=== PATIENT | male | born 1965 | race Caucasian/White ===

== ENCOUNTER 2021-11-14 20:00 | Outpatient (CLI) | payer OTHER, SELFPAY | END 2021-11-14 20:01 | disposition home or self-care (01) | LOC: SLEEP 11-15 05:47 | PROVIDERS: Visit Provider Nurse Practitioner | DX: R06.83 Snoring (principal); G47.33 Obstructive sleep apnea (adult) (pediatric) | CPT/HCPCS: 95810 ==

== ENCOUNTER → 2022-01-02 10:49 | Outpatient (BNVA) | payer OTHER, SELFPAY | PROVIDERS: Referring Provider Nurse Practitioner; Visit Provider Specialist | DX: S83.206A Unspecified tear of unspecified meniscus, current injury, right knee, initial encounter (principal); X58.XXXA Exposure to other specified factors, initial encounter; M17.11 Unilateral primary osteoarthritis, right knee | CPT/HCPCS: 73560; 73565; 99204 ==

== ENCOUNTER 2022-03-15 20:00 | Outpatient (CLI) | payer OTHER, SELFPAY | END 2022-03-15 20:01 | disposition home or self-care (01) | LOC: SLEEP 03-16 06:13 | PROVIDERS: Visit Provider Nurse Practitioner | DX: G47.33 Obstructive sleep apnea (adult) (pediatric) (principal) | CPT/HCPCS: 95811 ==

== ENCOUNTER 2022-07-11 12:36 | Emergency (ER) | payer OTHER, SELFPAY ==
[2022-07-11] VITALS (18 sets, daily range): BP systolic 82–136; BP diastolic 53–87; PULSE 67–123; RESP 18; TEMP 36.8; O2SAT 92–99
--- NOTE | 2022-07-11 12:54 | W.ED.MALEGU ---
HPI - Male Genitourinary General: Chief complaint: Urogenital-Male Stated complaint: urinary pain Time Seen by Provider: 07/11/22 12:54 History of Present Illness: Mr. Ladd is a 56-year-old gentleman with reported history of nephrolithiasis presenting to the emergency department for concern of recurrent nephrolithiasis. He reports 4 to 5 weeks of pain initially primarily on the flank however slowly descending and now recently has been in his penis. He notes hematuria associated with this and sharp stabbing pain worse with urination however constantly there. Denies associated infectious symptoms. Intensity symptoms is moderate to severe. Course has persisted. Denies testicular pain or swelling. No other specific changes in health, exacerbating, or alleviating factors identified. Onset (ago): week(s) Duration: progressively worsening Location: penis Severity: severe Quality: sharp and stabbing Relieving factors: none Exacerbating factors: urination Associated symptoms: Reports hematuria Review of Systems General: Reports: 10 or more systems reviewed and unremarkable except in HPI and below : Reports: hematuria PFSH ED PFSH: Medical History History of nephrolithiasis Surgical History History of appendectomy Social History Smoking and tobacco status: never smoked Second hand smoke exposure: No Smoking risk assessment/counseling performed?: No Alcohol intake: never Desire information about alcohol rehabilitation?: No Counseling given: No Substance/Drug Use: never Desire information about substance/drug rehabilitation?: No Counseling given: No Adopted: No Caregiver/support person: No Lives independently: No Household members: spouse Housing: House Marital status: Highest education level completed: High School Graduate service: Yes Current occupational status: employed Current occupational exposures/hazards: No Pets and animals: Yes Sexually active: Yes Do you think of yourself as: Straight/Heterosexual Current gender identity: Male Special alcon needs: No Physical Exam Const: COMMON NORMALS: alert GENERAL APPEARANCE: cooperative and well developed HENMT: COMMON NORMALS: normocephalic and atraumatic HEAD & SCALP: normocephalic and atraumatic THROAT: posterior oropharynx normal Eye: COMMON NORMALS: conjunctivae normal CONJUNCTIVA: Yes conjunctivae normal SCLERA: sclerae normal Neck/C-Spine: COMMON NORMALS: supple GENERAL: Yes trachea midline Resp: COMMON NORMALS: normal respiratory effort EFFORT & INSPECTION: Yes able to speak in complete sentences Cardio: COMMON NORMALS: regular rate and regular rhythm RATE: regular rate RHYTHM: regular rhythm GI: COMMON NORMALS: Soft to palpation PALPATION: Yes Soft to palpation and No Tenderness to palpation present (GI) : COMMON NORMALS: Yes normal external exam, Yes Testes normal and Yes scrotum normal Extremity: GENERAL: Yes normal exam except as noted and No edema Neuro: COMMON NORMALS: moves all extremities SENSORIUM/ORIENTATION: Yes alert and No Orientation impaired Psych: COMMON NORMALS: mental status grossly normal and Normal thought process present THOUGHT PROCESS: Normal thought process present Course Vital Signs: Vital signs: Vital Signs Temperature 98.3 F 07/11/22 12:38 Pulse Rate 67 07/11/22 17:17 Respiratory Rate 18 07/11/22 17:17 Blood Pressure 129/79 07/11/22 17:17 Pulse Oximetry 94 07/11/22 17:17 Oxygen Delivery Me thod Room Air 07/11/22 12:38 MDM - Male Medical Decision Making 56-year-old gentleman with history of nephrolithiasis presenting with similar symptoms and urinary symptoms. Exam as above. Patient is nontoxic. Labs notable for no significant hematologic abnormality, metabolic panel with mild dehydration, patient can adequately orally rehydrate. Urinalysis concerning for urinary tract infection. CT imaging demonstrates bladder stone which likely explains patient's symptoms. Incidental findings including bladder wall thickening and prostate enlargement discussed with patient. Discussed with urology, patient appropriate for outpatient management. Patient has symptom improvement with analgesia, antiemetic, IV fluids. Likely etiology of patient's symptoms is urinary tract infection and bladder calculus. The results of ED evaluation were discussed with the patient including prescriptions and/or symptomatic cares (if applicable) including appropriate and responsible use, followup plan, and return precautions. The patient verbalized understanding and felt safe for discharge. Medical Records I reviewed the patient's medical records. Lab Data I reviewed the patient's lab results. 07/11/22 13:36 07/11/22 13:36 Radiology Impressions Abdomen/Pelvis CT 07/11/22 13:22 IMPRESSION: 1. No hydronephrosis in either kidney. No obstructing ureteral calculi. 2. Diffuse bladder wall thickening with decompression of the bladder. Dependent calculus in the bladder measuring 10 mm. 3. Diffuse soft tissue bladder wall thickening dome of the bladder indeterminate. This can be further evaluated with cystoscopy. Neoplasm not excluded. 4. Mild prostate prominence measuring 4.1 CM. Laboratory Results WBC 9.6 10^3/uL (4.0-10.0) 07/11/22 13:36 RBC 5.55 10^6/uL (4.1-5.3) H 07/11/22 13:36 Hgb 16.6 g/dL (11.7-16.6) 07/11/22 13:36 Hct 49.7 % (42.0-52.0) 07/11/22 13:36 MCV 89.5 fl (80-94) 07/11/22 13:36 MCH 29.9 pg (28.0-34.0) 07/11/22 13:36 MCHC 33.4 g/dL (30.0-36.0) 07/11/22 13:36 RDW 13.8 % (12.1-15.1) 07/11/22 13:36 Plt Count 302 10^3/cmm (130-400) 07/11/22 13:36 MPV 10.7 fL (7.4-10.4) H 07/11/22 13:36 Neut % (Auto) 77.7 % 07/11/22 13:36 Lymph % (Auto) 14.7 % 07/11/22 13:36 [place] % (Auto) 5.9 % 07/11/22 13:36 Eos % (Auto) 0.8 % 07/11/22 13:36 Baso % (Auto) 0.5 % 07/11/22 13:36 Neut # (Auto) 7.43 10^3/uL (1.8-7.7) 07/11/22 13:36 Lymph # (Auto) 1.4 10^3/uL (0.8-4.8) 07/11/22 13:36 [place] # (Auto) 0.6 10^3/uL (0.2-0.9) 07/11/22 13:36 Eos # (Auto) 0.1 10^3/uL (0.0-0.8) 07/11/22 13:36 Baso # (Auto) 0.1 10^3/uL (0.0-0.1) 07/11/22 13:36 Nucleated RBC % (auto) 0 % 07/11/22 13:36 Nucleated RBCs # 0.0 /100WBC 07/11/22 13:36 Sodium 135 mmol/L (136-145) L 07/11/22 13:36 Potassium 4.1 mmol/L (3.5-5.1) 07/11/22 13:36 Chloride 101 mmol/L (98-107) 07/11/22 13:36 Carbon Dioxide 21 mmol/L (22-29) L 07/11/22 13:36 Anion Gap 17.1 (5-19) 07/11/22 13:36 BUN 22 mg/dL (6-20) H 07/11/22 13:36 Creatinine 0.9 mg/dL (0.7-1.2) 07/11/22 13:36 GFR Calculation 86.7 mL/min (90-130) L 07/11/22 13:36 Glucose 103 mg/dL (65-115) 07/11/22 13:36 Calculated Osmolality 284 mOsm/kg (285-295) L 07/11/22 13:36 Lactic Acid 1.1 mmol/L (0.5-2.2) 07/11/22 13:36 Calcium 9.2 mg/dL (8.5-10.5) 07/11/22 13:36 Total Bilirubin 0.6 mg/dL (0.15-1.2) 07/11/22 13:36 AST 15 U/L (0-40) 07/11/22 13:36 ALT 16 U/L (0-41) 07/11/22 13:36 Alkaline Phosphatase 139 U/L (40-130) H 07/11/22 13:36 Total Protein 7.6 g/dL (6.6-8.7) 07/11/22 13:36 Albumin 4.4 g/dL (3.5-5.2) 07/11/22 13:36 Globulin 3.2 g/dL (1.3-4.6) 07/11/22 13:36 Urine Color Yellow (Yellow) 07/11/22 13:30 Urine Appearance Sl hazy (CLEAR) A 07/11/22 13:30 Urine pH 5 (5-7) 07/11/22 13:30 Ur Specific Reading 1.025 (1.005-1.030) 07/11/22 13:30 Urine Protein 2+ (Negative) H 07/11/22 13:30 Urine Glucose (UA) Norm (Normal) 07/11/22 13:30 Urine Ketones 1+ (Negative) H 07/11/22 13:30 Urine Blood 3+ (Negative) H 07/11/22 13:30 Urine Nitrate Negative (Negative) 07/11/22 13:30 Urine Bilirubin 1+ (Negative) H 07/11/22 13:30 Urine Urobilinogen Neg mg/dL (Negative) 07/11/22 13:30 Ur Leukocyte Esterase 1+ (Negative) H 07/11/22 13:30 Urine RBC 50-80 /hpf (0-2) H 07/11/22 13:30 Urine WBC 55-80 /hpf (0-5) H 07/11/22 13:30 Ur Squamous Epith Cells 5-10 /hpf (0-5) H 07/11/22 13:30 Calcium Oxalate Crystal 5-10 /hpf H 07/11/22 13:30 Amorphous Sediment Not Reportable 07/11/22 13:30 Urine Bacteria 1+ /hpf (NONE) H 07/11/22 13:30 Urine Mucus 2+ /hpf 07/11/22 13:30 Discharge Plan Discharge Patient Disposition: Home Clinical Impression: Acute UTI, Bladder calculus, Dehydration Condition: Stable Prescriptions: New ciprofloxacin HCl 500 mg tablet 500 mg PO BID Qty: 20 0RF No Action tamsulosin [Flomax] 0.4 mg capsule 0.4 mg PO DAILY Discharge Orders: Discharge ED (Routine); Ordered 07/11/22 Ordered By: Ned Cardenas Referrals: Brionna Morelos FNP [Primary Care Provider] - Discharge Diet: Usual diet Discharge Activity: Increase activity as tolerated Patient Instructions: Dehydration (ED), Urinary Tract Infection in Men (ED), Bladder Stones (ED), Opioid Safety Activity Restrictions/Additional Instructions: Thank you for visiting the emergency department. You were seen and evaluated for penile pain associated with bleeding with concern for kidney stone. You do have a calculus that is not in your bladder not causing obstruction. You also have a urinary tract infection which will be treated as discussed. I will message case management for follow-up. You may call Dr. Brown's office at [phone]. His office is in the medical office building. Please continue your Azo. You may use acetaminophen. Do not use other NSAIDs or similar medications while taking the Toradol. Please ensure that you are staying hydrated. Return to the emergency department for anything as discussed or anything else that you are concerned about and feel needs emergency department evaluation. Coding Level of Care Code ED [employer] Consultant for Jayna Terry
[2022-07-11] MEDS: morphine 4 mg/mL SDV 1 mL IVP (13:19)
--- NOTE | 2022-07-11 13:22 | CT_ITS ---
WS: [id number] CT ABDOMEN PELVIS TECHNIQUE: Noncontrast CT of the abdomen and pelvis with coronal and sagittal reformatted images. CLINICAL INFORMATION: hematuria, penile pain, hx kidney stones COMPARISON: None. DLP: 1102.[address] scans at [facility] use at least one of these dose optimization techniques: automated e xposure control; mA and/or kV adjustment per patient size (includes targeted exams where dose is matc hed to clinical indication); or iterative reconstruction. FINDINGS: No hydronephrosis in either kidney. No obstructing renal or ureteral calculi. A few tiny calyceal tip calculi bilaterally nonobstructing. A few small renal cysts. Bladder is decompressed with mild diffu se bladder wall thickening. Depending calculus in the bladder measuring 10 mm. Mild diffuse bladder w all thickening at the dome of the bladder is indeterminant. This can be further evaluated with cystos copy. Neoplasm not excluded Lung bases are well aerated. Noncontrast liver and spleen are normal. Small esophageal hiatal hernia. Noncontrast pancreas is normal. Gallbladder appears normal. Adrenal glands are normal. Normal calibe r abdominal aorta. Sigmoid diverticulosis. No evidence of acute diverticulitis. No periaortic or pelv ic lymphadenopathy. No inguinal lymphadenopathy. No other suspicious findings. CT/CT kidney stone [id number] IMPRESSION: 1. No hydronephrosis in either kidney. No obstructing ureteral calculi. 2. Diffuse bladder wall thickening with decompression of the bladder. Dependen t calculus in the bladder measuring 10 mm. 3. Diffuse soft tissue bladder wall thickening dome of the bladder indetermina te. This can be further evaluated with cystoscopy. Neoplasm not excluded. 4. Mild prostate prominence measuring 4.1 CM.
[2022-07-11] MEDS: sodium chloride 0.9% 1,000 ML 999 ML IV (13:34)
[2022-07-11] MEDS: ondansetron 2 mg/ML SDV 2 mL 4 MG IVP (13:35)
--- NOTE | 2022-07-11 13:37 | PC.NURSE ---
Pt was given morphine per physician order. After administration, pt began to feel nauseated, flushed, bradycardic and hypotensive. Dr. Cardenas notified. New orders recieved from Dr. Cardenas.
[2022-07-11 13:50] LABS: Basophils # 0.1 10^3/uL (0.0-0.1); Basophils % 0.5 %; Eosinophils # 0.1 10^3/uL (0.0-0.8); Eosinophils % 0.8 %; Hematocrit 49.7 % (42.0-52.0); Hemoglobin 16.6 g/dL (11.7-16.6); Lymphocytes # 1.4 10^3/uL (0.8-4.8); Lymphocytes % 14.7 %; Mean Corpuscular HGB Conc 33.4 g/dL (30.0-36.0); Mean Corpuscular Hemoglobin 29.9 pg (28.0-34.0); Mean Corpuscular Volume 89.5 fl (80-94); Mean Platelet Volume 10.7 fL (7.4-10.4); Monocytes # 0.6 10^3/uL (0.2-0.9); Monocytes % 5.9 %; Neutrophils # 7.43 10^3/uL (1.8-7.7); Neutrophils % 77.7 %; Nucleated Red Blood Cells % 0 %; Platelet Count 302 10^3/cmm (130-400); Red Blood Count 5.55 10^6/uL (4.1-5.3); Red Cell Distribution Width 13.8 % (12.1-15.1); White Blood Count 9.6 10^3/uL (4.0-10.0)
[2022-07-11 14:10] LABS: Alanine Aminotransferase 16 U/L (0-41); Albumin Level 4.4 g/dL (3.5-5.2); Alkaline Phosphatase 139 U/L (40-130); Anion Gap 17.1 (5-19); Aspartate Amino Transferase 15 U/L (0-40); Blood Urea Nitrogen 22 mg/dL (6-20); Calcium 9.2 mg/dL (8.5-10.5); Carbon Dioxide 21 mmol/L (22-29); Chloride 101 mmol/L (98-107); Globulin 3.2 g/dL (1.3-4.6); Glomerular Filtration Rate 86.7 mL/min (90-130); Glucose 103 mg/dL (65-115); Osmolality Calculated 284 mOsm/kg (285-295); Potassium 4.1 mmol/L (3.5-5.1); Sodium 135 mmol/L (136-145); Total Bilirubin 0.6 mg/dL (0.15-1.2); Total Protein 7.6 g/dL (6.6-8.7)
[2022-07-11 14:11] LABS: Lactic Sepsis W/Reflex 1.1 mmol/L (0.5-2.2)
[2022-07-11 14:45] LABS: Bilirubin Urine 1+ (Negative); Blood Urine 3+ (Negative); Glucose Urine UA Norm (Normal); Ketones Urine 1+ (Negative); Nitrate Urine Negative (Negative); Protein Urine 2+ (Negative); Specific Gravity, Urine 1.025 (1.005-1.030); Urine Appearance SL Hazy (CLEAR); Urine Color Yellow (Yellow); Urobilinogen Urine Neg (Negative); pH Urine 5 (5-7)
[2022-07-11 14:46] LABS: Add Urine Microscopic? YES; Leukocyte Esterase Urine 1+ (Negative)
[2022-07-11 14:47] LABS: Add Urine Culture? Yes; Bacteria Urine 1+ /hpf; Mucus Urine 2+ /hpf; RBC Urine 50-80 /hpf (0-2); WBC Urine 55-80 /hpf (0-5)
[2022-07-11] MEDS: ketorolac 30 mg/mL INJ 15 MG IVP (16:19)
[2022-07-11] MEDS: hyoscyamine ODT 0.125 mg Tablet PO (16:20)
== END 2022-07-11 17:19 | disposition home or self-care (01) ==
PROVIDERS: Emergency Provider Emergency Medicine; PCP Nurse Practitioner
DX: N39.0 Urinary tract infection, site not specified (principal); N21.0 Calculus in bladder; E86.0 Dehydration; Z87.442 Personal history of urinary calculi
CPT/HCPCS: 36415; 74176; 80053; 81001; 83605; 85025; 87040; 87077; 87086; 87186; 96361; 96374; 96375; 99285; J1885; J2270; J2405; J7030

== ENCOUNTER → 2022-07-12 09:55 | Outpatient (BNVA) | payer OTHER, SELFPAY | PROVIDERS: PCP Nurse Practitioner; Referring Provider Nurse Practitioner; Visit Provider Specialist | DX: M17.11 Unilateral primary osteoarthritis, right knee (principal) | CPT/HCPCS: 73560; 73565; 99214 ==

== ENCOUNTER 2022-10-02 08:07 | Outpatient (CLI) | payer OTHER, SELFPAY ==
--- NOTE | 2022-10-02 08:56 | MR_ITS ---
WS: [id number] MRI RIGHT KNEE NONCONTRAST TECHNIQUE: Axial PD, coronal PD fat sat, coronal PD, sagittal PD, and sagittal PD fat-sat images obta ined. CLINICAL INFORMATION: knee pain/ meniscus tear COMPARISON: None. FINDINGS: Distal quadriceps and patella tendons are intact. Hypertrophic patella. Prepatellar and infrapatellar soft tissue edema. Small suprapatellar effusion. Moderate tricompartmental arthritis. Advanced chond romalacia lateral joint compartment with subchondral edema. Small amount of subchondral edema in the medial tibial plateau. Normal ACL and PCL. Complex tear involving the lateral meniscus with blunting of the posterior horn. Suspected displaced meniscus extends into the intercondylar notch. Chronic increased intrasubstance signal abnormality involving the anterior horn lateral meniscus. Mil d chronic thinning of the medial meniscus which appears intact. Mild chondromalacia with patella. Nor mal medial lateral patellar retinaculum. Normal lateral collateral ligament. Normal medial collateral ligament. MR/MR knee RT wo con* [id number] IMPRESSION: 1. ACL and PCL are intact. 2. Complex tear involving the lateral meniscus with suspected bucket-handle te ar and flipped fragment into the intercondylar notch. Blunting of the posterior horn. 3. Grade III to IV chondromalacia medial and lateral joint compartments with s ubchondral edema. 4. Small suprapatellar effusion. Hypertrophic patella. 5. Prepatellar and infrapatellar soft tissue edema. Outbridge grading: grade IV: full-thickness cartilage loss with underlying bone reactive changes
== END 2022-10-02 08:08 | disposition home or self-care (01) ==
PROVIDERS: PCP Nurse Practitioner; Visit Provider Specialist
DX: S83.271A Complex tear of lateral meniscus, current injury, right knee, initial encounter (principal); X58.XXXA Exposure to other specified factors, initial encounter; M17.11 Unilateral primary osteoarthritis, right knee; M70.40 Prepatellar bursitis, unspecified knee; M25.461 Effusion, right knee; R60.0 Localized edema
CPT/HCPCS: 73721

== ENCOUNTER → 2022-11-08 13:22 | Outpatient (BNVA) | payer OTHER, SELFPAY | PROVIDERS: PCP Nurse Practitioner; Visit Provider Specialist | DX: S83.281A Other tear of lateral meniscus, current injury, right knee, initial encounter (principal); X58.XXXA Exposure to other specified factors, initial encounter | CPT/HCPCS: 99213 ==

== ENCOUNTER → 2023-02-05 12:59 | Outpatient (BNVA) | payer OTHER, SELFPAY | PROVIDERS: PCP Nurse Practitioner; Visit Provider Specialist | DX: M25.561 Pain in right knee (principal); G89.29 Other chronic pain; S83.281A Other tear of lateral meniscus, current injury, right knee, initial encounter; M17.11 Unilateral primary osteoarthritis, right knee; X58.XXXA Exposure to other specified factors, initial encounter | CPT/HCPCS: 73560; 73565; 99214 ==

== ENCOUNTER 2023-03-02 09:00 | Day surgery (SDC) | payer OTHER, SELFPAY ==
[2023-03-02] VITALS (11 sets, daily range): BP systolic 143–157; BP diastolic 89–112; PULSE 55–77; RESP 9–25; TEMP 36.1–36.6; O2SAT 92–100; BMI 34.2
[2023-03-02] MEDS: CELEcoxib 200 mg Capsule 400 MG PO (09:32)
[2023-03-02] MEDS: gabapentin 300 mg Capsule PO (09:32)
[2023-03-02] MEDS: sodium chloride 0.9% 1,000 ML 30 ML IV (09:34)
[2023-03-02] MEDS: acetaminophen 1,000 MG/100 ML PIGGYBACK 400 MG IV (09:34)
--- NOTE | 2023-03-02 11:30 | P.HPUD_ITS ---
Surgery/Procedure H&P Update DATE OF PROCEDURE: March 02, 2023 DATE H&P PERFORMED: 02/05/23 H&P UPDATE INFORMATION: I have reviewed H&P completed within last 30 days, I have examined patient prior to procedure, No changes to prior documentation and H&P is in [facility] EMR on date indicated PRIMARY INDICATION FOR PROCEDURE: MRI Impression: 1. ACL and PCL are intact. 2. Complex tear involving the lateral meniscus with suspected bucket-handle tear and flipped fragment into the intercondylar notch. Blunting of the posterior horn. 3. Grade III to IV chondromalacia medial and lateral joint compartments with subchondral edema. 4. Small suprapatellar effusion. Hypertrophic patella. 5. Prepatellar and infrapatellar soft tissue edema. PLANNED PROCEDURE: Operation Date: 03/02/23 10:40 Proposed Procedures p Knee Arthroscopy Knee Arthroscopy w/ Lateral Menisectomy 19542,M25.561,G89.29(Right) - Tala Roth MD Related Problem List Diagnoses (1) Acute lateral meniscus tear of right knee: Qualifiers: Encounter type: subsequent encounter Qualified Code(s): S83.281D - Other tear of lateral meniscus, current injury, right knee, subsequent encounter (2) Primary osteoarthritis of right knee:
--- NOTE | 2023-03-02 12:08 | ANES.PREANE2 ---
Pre-Anesthetic Assessment Height/Weight: Height 1.85 m Weight 117.934 kg Temp Pulse Resp BP Pulse Ox O2 Del Method 97.1 F L 65 18 150/95 96 Room Air 03/02/23 09:22 03/02/23 09:22 03/02/23 09:22 03/02/23 09:22 03/02/23 09:22 03/02/23 09:22 Operation Date: 03/02/23 10:40 Proposed Procedures p Knee Arthroscopy Knee Arthroscopy w/ Lateral Menisectomy 03032,M25.561,G89.29(Right) - Tala Roth MD Familial anesthetic complications: None Was Beta Andrzej taken within 24 hours: N/A Was Clonidine taken within 24 hours: N/A Last intake: Intake Last Liquid Date 03/01/23 Last Liquid Time 22:00 Last Solid Date 03/01/23 Last Solid Time 18:00 Social No alcohol and No tobacco Exam alert, oriented x 3, clear to auscultation bilaterally and regular rate & rhythm Airway Mallampati: Class IV Dentition: full Comments: Comments: black 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 Anesthetic Plan ASA status: 2 Anesthesia: General Risk of > 500 ml blood loss (7ml/kg in children): No Medications/Allergies Home Medications Medication Instructions Recorded Confirmed Last Taken Type tamsulosin 0.4 mg capsule (Flomax) 0.4 mg PO DAILY 01/02/22 03/02/23 02/28/23 History Allergies Allergy/AdvReac Type Severity Reaction Status Date / Time hydrocortisone Allergy Unknown Verified 02/05/23 13:18 morphine AdvReac ADR-Nausea Verified 02/05/23 13:18 Current Medications Generic Name Dose Route Start Last Admin Trade Name Freq PRN Reason Stop Dose Admin Sodium Chloride 1,000 mls @ 30 mls/hr 03/02/23 09:15 03/02/23 09:34 Sodium Chloride 0.9% IV 03/03/23 09:14 30 mls/hr .Q24H DOMINIQUE Administration PFSH Anesthesia Medical History History of nephrolithiasis Surgical History History of appendectomy Social History Smoking and tobacco/nicotine status: never used tobacco/nicotine Second hand smoke exposure: No Alcohol intake: never Substance/Drug Use: never Adopted: No Caregiver/support person: No Lives independently: No Household members: spouse Housing: House Marital status: Highest education level completed: High School Graduate service: Yes Current occupational status: employed Current occupational exposures/hazards: No Pets and animals: Yes Sexually active: Yes Do you think of yourself as: Straight/Heterosexual Current gender identity: Male Special alcon needs: No Data Anesthesia Cardiac Studies: No Data to Display
[2023-03-02] MEDS: ceFAZolin 2,000 MG in sodium chloride 0.9% (plus) 50 ML 100 MG IV (12:14)
[2023-03-02] MEDS: ROPivacaine 0.5% SDV 30 mL 150 MG INJECTION (13:25)
--- NOTE | 2023-03-02 14:45 | P.OP_ITS ---
Operative Report Date of procedure: March 02, 2023 Pre-op diagnosis: Right knee lateral meniscal tear, bucket-handle, with primary osteoarthritis Post-op diagnosis: Right knee lateral and medial meniscal tears with primary osteoarthritis Post-op findings: Large complex lateral meniscal tear with anterior horn medial meniscal tear. Significant osteoarthritic change in all 3 compartments Procedure done: Right knee arthroscopy with partial medial and lateral meniscectomies. Chondroplasty medial femoral condyle lateral femoral condyle and patellofemoral joint Implants: None Specimens removed/disposition: None Surgeon: Tala Roth MD Breaker Off: None Anesthesia: General (Per LMA, ASA 2) Estimated blood loss (mL): 5 Tourniquet time (min): 70 (At 250 mmHg) IV fluids (mL): 800 Urine output (mL): 0 (No Ricci) Complications: None Condition: stable Disposition: PACU (Then return to same-day surgery for discharge to home) Brief History: This 57-year-old gentleman presents today for arthroscopic intervention with regards to his right knee. He has been seen and followed in the office. The patient has chronic osteoarthritis, however, he had an MRI in September 2022 which demonstrated a complex lateral meniscal tear with a fragment flipped into the midportion of the knee joint consistent with bucket-handle tear. The patient was unable to proceed immediately with surgery, however, he presents today for arthroscopic intervention. Risks and complications were discussed with him in the office. Consents were signed and questions were answered. Procedure: Patient was brought to the operating theater and after undergoing adequate general anesthesia per LMA, ASA 2, the patient's right lower extremity was prepped and draped in usual fashion utilizing DuraPrep. A tourniquet was placed high on the leg prior to prepping and draping. The tourniquet was elevated prior to commencement of the surgical procedure to 250 mmHg. Total tourniquet time was 70 minutes. Elevation followed prepping and exsanguination. Prior to commencement of the surgical procedure, a surgical pause was performed. At the time of the surgical pause, we identified the site and side of surgery. We also confirm the patient's identity and appropriate and timely administration of preoperative antibiotics. Preoperative surgical markings were also visualized at this time. Standard arthroscopic portals were utilized including superolateral, inferomedial, and inferolateral portals. The examination commenced in the suprapatellar pouch area where the patient was noted to have chondromalacia of the significant degree on the undersurface of the patella as well as within the trochlear groove. The arthroscope was then passed in the medial compartment where there was noted to be complex tearing of the anterior horn of the medial meniscus. It was difficult to visualize secondary to synovitis anteriorly and also the complex displaced tear of the lateral meniscus interfered with arthroscopic visualization. The arthroscope was then passed across the notch area where anterior cruciate ligament was visualized and found to be intact. The scope was passed into the lateral compartment with the knee in a [id number] position. Lateral meniscus was noted to have complex tearing with significant fragments displaced into the knee joint. These involved at least the anterior two thirds of the meniscus and extended to the posterior horn. This was addressed with a combination of basket forceps, intra-articular shaver, and the intra-articular heat wand. A significant portion of the lateral meniscus was resected. Once lateral meniscus had been thus prepared it was palpated and found to be intact and not displaceable into the knee joint. Scope was then returned to the medial compartment where the anterior horn medial meniscal tear was addressed with the intra-articular shaver and heat wand as well. The meniscus was palpated and found to be not displaceable into the knee joint. Chondroplasties were performed in both the medial and lateral compartments with regards to primarily the femoral condyle and irregularities that it demonstrated. The arthroscope was then returned to the patellofemoral joint where a chondroplasty was performed of the undersurface of the patella. This chondroplasty involved use of the intra-articular shaver as well as the heat wand. Once the patella had been addressed, the scope was passed back through the knee compartments to evaluate for other abnormalities. Finding none, attention was directed to closure. The knee was copiously irrigated and suctioned dry. Following this, each portal was closed with a simple suture followed by Dermabond and Tegaderm. Additionally, the knee was injected with 20 mL of half percent ropivacaine. Additional 10 mL of ropivacaine was placed about the portals. Sterile dressing was placed consisting of the Tegaderm followed by the Angel wrap. Patient was returned to Recovery Room in satisfactory condition where he will be discharged home to follow-up with me in the office as scheduled. There were no complications and no specimens. Related Problem List Diagnoses (1) Acute lateral meniscus tear of right knee: (2) Acute medial meniscus tear of right knee: (3) Primary osteoarthritis of right knee:
[2023-03-02] MEDS: HYDROcodone-acetaminophen 5-325 mg Tablet 1 TAB PO (15:13)
== END 2023-03-02 15:42 | disposition home or self-care (01) ==
PROVIDERS: PCP Nurse Practitioner; Visit Provider Specialist
PROC: (CPT 29870; principal; 2023-03-02 10:30)
PROC: (CPT 29880; 2023-03-02 10:30)
DX: S83.281A Other tear of lateral meniscus, current injury, right knee, initial encounter (principal); S83.241A Other tear of medial meniscus, current injury, right knee, initial encounter; X58.XXXA Exposure to other specified factors, initial encounter; M17.11 Unilateral primary osteoarthritis, right knee
CPT/HCPCS: 29880; J0131; J0690; J1100; J2250; J2405; J2704; J2795; J3010; J7030

== ENCOUNTER → 2023-03-15 10:52 | Outpatient (BNVA) | payer OTHER, SELFPAY | PROVIDERS: PCP Nurse Practitioner; Visit Provider Specialist | DX: M25.561 Pain in right knee; G89.29 Other chronic pain; S83.241D Other tear of medial meniscus, current injury, right knee, subsequent encounter; S83.281D Other tear of lateral meniscus, current injury, right knee, subsequent encounter; X58.XXXD Exposure to other specified factors, subsequent encounter | CPT/HCPCS: 73560; 73562; 73565; 99024 ==

== ENCOUNTER → 2023-12-17 08:05 | Outpatient (BNVA) | payer OTHER, SELFPAY | PROVIDERS: PCP Nurse Practitioner; Visit Provider Specialist | DX: M25.562 Pain in left knee (principal); G89.29 Other chronic pain | CPT/HCPCS: 73560; 73565; 99214 ==

== ENCOUNTER 2024-01-14 13:03 | Outpatient (CLI) | payer OTHER, SELFPAY ==
--- NOTE | 2024-01-14 13:00 | MR_ITS ---
WS: [id number] MRI LEFT KNEE NONCONTRAST TECHNIQUE: Axial PD, coronal PD fat sat, coronal PD, sagittal PD, and sagittal PD fat-sat images obta ined. CLINICAL INFORMATION: knee pain COMPARISON: None. FINDINGS: Distal quadriceps and patella tendons are intact. Hypertrophic patella. Mild tricompartmental arthrit is. Normal ACL and PCL. Mild chronic thinning of the medial and lateral meniscus. No acute appearing meniscal tears. Fibular head appears normal. Normal medial and lateral collateral ligaments. Normal popliteus. Mild c hondromalacia patella. Tiny suprapatellar effusion. MR/MR knee LT wo con* [id number] IMPRESSION: 1. Mild tricompartmental arthritis. 2. Normal ACL and PCL. 3. Mild chronic thinning of the medial and lateral meniscus. No acute appearin g meniscal tears. 4. Mild chondromalacia patella. Hypertrophic patella. 5. No other acute findings. Outbridge grading: grade II: blister-like swelling/fraying of articular cartila ge extending to surface
== END 2024-01-14 13:04 | disposition home or self-care (01) ==
LOC: RAD 13:04
PROVIDERS: PCP Nurse Practitioner; Visit Provider Specialist
DX: M22.2X2 Patellofemoral disorders, left knee (principal)
CPT/HCPCS: 73721

== ENCOUNTER → 2024-01-15 08:01 | Outpatient (BNVA) | payer OTHER, SELFPAY | PROVIDERS: PCP Nurse Practitioner; Visit Provider Surgery | DX: Z12.11 Encounter for screening for malignant neoplasm of colon (principal); R03.0 Elevated blood-pressure reading, without diagnosis of hypertension | CPT/HCPCS: 99204 ==

== ENCOUNTER 2024-02-21 06:23 | Day surgery (SDC) | payer OTHER, SELFPAY ==
--- NOTE | 2024-02-21 05:30 | W.PM.OPSFHP ---
Same Day Surgery H&P Indication for Procedure/HPI DATE OF PROCEDURE: February 21, 2024 CHIEF COMPLAINT/INDICATIONFOR SURGICAL PROCEDURE: need for screening colonoscopy PREOP DIAGNOSIS: need for screening colonoscopy PLANNED PROCEDURE: Operation Date: 02/21/24 08:20 Proposed Procedures p Colonoscopy- 71875,G0121, Z12.11(Not Applicable) - Genaro Jaimes MD Medications/Allergies* Home Medications Medication Instructions Recorded Confirmed Type tamsulosin 0.4 mg capsule (Flomax) 0.4 mg PO DAILY 01/02/22 02/19/24 History ibuprofen 800 mg tablet 800 mg PO Q8H PRN Pain (Scale 01/15/24 02/19/24 History Score 1-3) omeprazole 20 mg capsule,delayed 20 mg PO DAILY PRN Indigestion 01/15/24 02/19/24 History release mirtazapine 30 mg tablet 30 mg PO DAILY 02/19/24 02/19/24 History Allergies/Adverse Reactions Allergy/AdvReac Type Severity Reaction Status Date / Time hydrocortisone Allergy Unknown Verified 01/15/24 08:04 morphine AdvReac ADR-Nausea Verified 01/15/24 08:04 Pertinent History/Comorbid Conditions* Medical History (Updated 03/04/23 @ 12:58 by Tala Roth MD) History of nephrolithiasis Surgical History (Updated 07/11/22 @ 13:03 by Ned Cardenas MD) History of appendectomy Family History (Updated 01/15/24 @ 08:18 by PALOMA Uribe) Cancer Mother bone, liver, possibly brain cancer Father bladder, prostate, mostly likely brain cancer Social History Smoking and tobacco/nicotine status: never used tobacco/nicotine Second hand smoke exposure: No Alcohol intake: never Substance/Drug Use: never Adopted: No Caregiver/support person: No Lives independently: No Household members: spouse Housing: House Marital status: Highest education level completed: High School Graduate service: Yes Current occupational status: employed Current occupational exposures/hazards: No Pets and animals: Yes Sexually active: Yes Do you think of yourself as: Straight/Heterosexual Current gender identity: Male Special alcon needs: No Pertinent Exam Findings alert, oriented x 3 and clear to auscultation bilaterally Recommendations Surgery/Procedure today Coding Level of Care Code Acute Code for Chg Fwd
[2024-02-21 06:47] VITALS: BP 125/89; PULSE 71; RESP 18; TEMP 36; O2SAT 96; BMI 34.2
[2024-02-21] MEDS: sodium chloride 0.9% 500 ML 15 ML IV (06:53)
--- NOTE | 2024-02-21 06:57 | ANES.PREANE2 ---
Pre-Anesthetic Assessment Height/Weight: Height 1.85 m Weight 117.934 kg Temp Pulse Resp BP Pulse Ox O2 Del Method 96.8 F L 71 18 125/89 96 Room Air 02/21/24 06:47 02/21/24 06:47 02/21/24 06:47 02/21/24 06:47 02/21/24 06:47 02/21/24 06:47 Preop Diagnosis: screening colonoscopy Operation Date: 02/21/24 08:20 Proposed Procedures p Colonoscopy- 28626,G0121, Z12.11(Not Applicable) - Genaro Jaimes MD Familial anesthetic complications: none Was Beta Andrzej taken within 24 hours: N/A Was Clonidine taken within 24 hours: N/A Last intake: Intake Last Liquid Date 02/20/24 Last Liquid Time 23:00 Last Solid Date 02/19/24 Last Solid Time 20:00 Social Tobacco (smokeless tobacco 02/20/24 2100) and No alcohol Exam alert, oriented x 3, clear to auscultation bilaterally and regular rate & rhythm Airway Submandibular: within normal limits Cervical ROM: within normal limits Mallampati: Class II Dentition: full Pulmonary Sleep Apnea cant wear cpap CV/HEM None reported None reported Hepatic None reported GI Gastroesophageal Reflux Disease Metabolic None reported Musc/skel None reported Neuropsych None reported Anesthetic Plan ASA status: 2 Anesthesia: MAC Medications/Allergies Home Medications Medication Instructions Recorded Confirmed Last Taken Type tamsulosin 0.4 mg capsule (Flomax) 0.4 mg PO DAILY 01/02/22 02/19/24 02/19/24 History ibuprofen 800 mg tablet 800 mg PO Q8H PRN Pain (Scale 01/15/24 02/19/24 02/19/24 History Score 1-3) omeprazole 20 mg capsule,delayed 20 mg PO DAILY PRN Indigestion 01/15/24 02/19/24 02/18/24 History release mirtazapine 30 mg tablet 30 mg PO DAILY 02/19/24 02/19/24 02/19/24 History Allergies Allergy/AdvReac Type Severity Reaction Status Date / Time hydrocortisone Allergy Unknown Verified 01/15/24 08:04 morphine AdvReac ADR-Nausea Verified 01/15/24 08:04 Current Medications Generic Name Dose Route Start Last Admin Trade Name Freq PRN Reason Stop Dose Admin Sodium Chloride 500 mls @ 15 mls/hr 02/21/24 06:46 02/21/24 06:53 Sodium Chloride 0.9% IV 02/22/24 06:45 15 mls/hr .Q24H PRN Administration COLONOSCOPY FLUIDS PFSH Anesthesia Medical History (Updated 01/15/24 @ 08:13 by PALOMA Uribe) History of nephrolithiasis Surgical History (Updated 01/15/24 @ 08:[address]) History of appendectomy Family History (Updated 01/15/24 @ 08:[address]) Mother Cancer bone, liver, possibly brain cancer Father Cancer bladder, prostate, mostly likely brain cancer Social History Smoking and tobacco/nicotine status: never used tobacco/nicotine Second hand smoke exposure: No Alcohol intake: never Substance/Drug Use: never Adopted: No Caregiver/support person: No Lives independently: No Household members: spouse Housing: House Marital status: Highest education level completed: High School Graduate service: Yes Current occupational status: employed Current occupational exposures/hazards: No Pets and animals: Yes Sexually active: Yes Do you think of yourself as: Straight/Heterosexual Current gender identity: Male Special alcon needs: No Data Anesthesia Cardiac Studies: No Data to Display
[2024-02-21 08:08] VITALS: BP 125/87; PULSE 69; RESP 12; TEMP 36.1; O2SAT 99
[2024-02-21 08:23] VITALS: BP 134/92; PULSE 63; RESP 16; O2SAT 97
--- NOTE | 2024-02-21 08:40 | ANE.PACU2 ---
Inpatient post-anesthesia follow up: Airway intact: Yes Vital signs: Temperature 97 F Pulse Rate 63 Respiratory Rate 16 Blood Pressure 134/92 Pulse Oximetry 97 Oxygen Delivery Me thod Room Air Oxygen Flow Rate 4 Fraction of Inspir ed Oxygen Hydration adequate: Yes Nausea and vomiting: No Pain level: 1 Mental status: Baseline
== END 2024-02-21 08:40 | disposition home or self-care (01) ==
PROVIDERS: PCP Nurse Practitioner; Visit Provider Surgery
PROC: 0DJD8ZZ Inspection of Lower Intestinal Tract, Via Natural or Artificial Opening Endoscopic (ICD-10-PCS; CPT 45378; principal; 2024-02-21 08:20)
DX: Z12.11 Encounter for screening for malignant neoplasm of colon (principal); K63.5 Polyp of colon; G47.30 Sleep apnea, unspecified; K21.9 Gastro-esophageal reflux disease without esophagitis
CPT/HCPCS: 45385; 88305; J2704; J3490; J7040

== ENCOUNTER → 2024-03-04 11:49 | Outpatient (BNVA) | payer OTHER, SELFPAY | PROVIDERS: PCP Nurse Practitioner; Visit Provider Surgery | DX: Z09 Encounter for follow-up examination after completed treatment for conditions other than malignant neoplasm (principal) | CPT/HCPCS: 99212 ==

== ENCOUNTER → 2024-12-08 09:17 | Outpatient (BNVA) | payer OTHER, SELFPAY | PROVIDERS: PCP Nurse Practitioner; Visit Provider Specialist | DX: M17.11 Unilateral primary osteoarthritis, right knee (principal); S83.241A Other tear of medial meniscus, current injury, right knee, initial encounter; S83.281A Other tear of lateral meniscus, current injury, right knee, initial encounter; X58.XXXA Exposure to other specified factors, initial encounter | CPT/HCPCS: 20610; 73560; 73565; 99214; J7318 ==

== ENCOUNTER 2025-02-10 13:14 | Emergency (ER) | payer OTHER, SELFPAY ==
[2025-02-10 13:18] VITALS: BP 145/85; PULSE 89; RESP 17; TEMP 36.7; O2SAT 96; BMI 34.4
--- NOTE | 2025-02-10 13:44 | CTR_ITS ---
PROCEDURE INFORMATION: Exam: CT Head Without Contrast Exam date and time: 02/10/2025 1:54 PM Age: 59 years old Clinical indication: Pain; Headache TECHNIQUE: Imaging protocol: Computed tomography of the head without contrast. Radiation optimization: All CT scans at this facility use at least one of these dose optimization techniques: automated exposure control; mA and/or kV adjustment per patient size (includes targeted exams where dose is matched to clinical indication); or iterative reconstruction. COMPARISON: No relevant prior studies available. RADIATION DOSE METRICS: Total DLP (mGy-cm): 1164.65 FINDINGS: Brain: Mild nonspecific white matter low attenuation which may be related to microvascular ischemic changes. No acute confluent lobar ischemic infarct. No acute intracranial hemorrhage. Cerebral ventricles: The ventricles and sulci are normal in size and shape for the patient's stated age. Paranasal sinuses: No fluid levels. Mastoid air cells: Visualized mastoid air cells are well aerated. Bones: No acute calvarial fracture. Soft tissues: Visualized soft tissues are unremarkable. CT/CT head wo con* 45530 IMPRESSION: No acute intracranial abnormality. If symptoms persist, consider further evaluation with MRI, if there are no contraindications to obtaining a MRI scan.
--- NOTE | 2025-02-10 13:45 | W.ED.HA ---
HPI - Headache General: Chief Complaint: Headache Stated Complaint: va sent, lewis, dizzy, off balance Time Seen by Provider: 02/10/25 13:42 History of Present Illness: 59-year-old man with no significant past medical history presents to the emergency room with headache and vertigo symptoms. He says he feels dizzy and off balance. No other focal motor deficits. He has had some cough. No fever. No altered mental status. No focal motor deficits. No fevers. Related Data Home Medications ?Medication ?Instructions ?Recorded ?Confirmed tamsulosin 0.4 mg capsule (Flomax) 0.4 mg PO DAILY 01/02/22 12/08/24 ibuprofen 800 mg tablet 800 mg PO Q8H PRN Pain (Scale 01/15/24 12/08/24 Score 1-3) omeprazole 20 mg capsule,delayed 20 mg PO DAILY PRN Indigestion 01/15/24 12/08/24 release mirtazapine 30 mg tablet 30 mg PO DAILY 02/19/24 12/08/24 Previous Rx's ?Medication ?Instructions ?Recorded dexamethasone 6 mg tablet 6 mg PO DAILY 5 days #5 tabs 02/10/25 meclizine 25 mg tablet 25 mg PO QID PRN dizziness #20 tabs 02/10/25 Allergies Allergy/AdvReac Type Severity Reaction Status Date / Time gabapentin Allergy Unknown Verified 02/10/25 13:22 hydrocortisone Allergy Unknown Verified 12/08/24 08:00 morphine AdvReac ADR-Nausea Verified 12/08/24 08:00 Review of Systems Narrative: Constitutional symptoms: Negative except as documented in HPI. Skin symptoms: Negative except as documented in HPI. Eye symptoms: Negative except as documented in HPI. ENMT symptoms: Negative except as documented in HPI. Respiratory symptoms: Negative except as documented in HPI. Cardiovascular symptoms: Negative except as documented in HPI. Gastrointestinal symptoms: Negative except as documented in HPI. Genitourinary symptoms: Negative except as documented in HPI. Musculoskeletal symptoms: Negative except as documented in HPI. Neurologic symptoms: Negative except as documented in HPI. Psychiatric symptoms: Negative except as documented in HPI. Endocrine symptoms: Negative except as documented in HPI. PFSH ED PFSH: Medical History (Updated 02/10/25 @ 14:26 by Mercedez Felder MD) History of nephrolithiasis Surgical History History of appendectomy Family History Mother Cancer bone, liver, possibly brain cancer Father Cancer bladder, prostate, mostly likely brain cancer Social History Smoking and tobacco/nicotine status: never used tobacco/nicotine Second hand smoke exposure: No Alcohol intake: never Substance/Drug Use: never Adopted: No Caregiver/support person: No Lives independently: No Household members: spouse Housing: House Marital status: Highest education level completed: High School Graduate service: Yes Current occupational status: employed Current occupational exposures/hazards: No Pets and animals: Yes Sexually active: Yes Do you think of yourself as: Straight/Heterosexual Current gender identity: Male Special alcon needs: No Physical Exam Narrative: EXAM NARRATIVE: General: Alert, no acute distress. Skin: Warm, dry. Head: Normocephalic, atraumatic. Neck: Supple, trachea midline. Eye: Extraocular movements are intact. Ears, nose, mouth and throat: mucosa moist. Cardiovascular: Regular, Normal peripheral perfusion. Respiratory: Lungs are clear to auscultation, respirations are non-labored, breath sounds are equal, Symmetrical chest wall expansion. Gastrointestinal: Soft, Nontender, Non distended Musculoskeletal: Normal ROM, no deformity. Neurological: Alert and oriented, No focal neurological deficit observed. Psychiatric: Cooperative, appropriate mood & affect. Course Vital Signs: Vital signs: Vital Signs Temperature 98.1 F 02/10/25 13:18 Pulse Rate 89 02/10/25 13:18 Respiratory Rate 17 02/10/25 13:18 Blood Pressure 145/85 02/10/25 13:18 Pulse Oximetry 96 02/10/25 13:18 MDM - Headache Medical Decision Making Medical decision making Patient's reason for coming to the emergency room: Dizziness, headache Social determinants: Patient is disabled I reviewed the patient's medical record. Patient was last seen in November by orthopedics for knee arthritis I reviewed the patient's current home meds Patient takes mirtazapine. No meds for blood pressure diabetes Alternate historians: None Differential diagnosis including but not limited to and based on the above HPI, review of systems and physical exam: for patient with complaint of dizziness: stroke, hypotension, hypertension, infection, vertigo, orthostasis Orders placed to evaluate differential diagnosis based on the above differential, HPI and physical exam CT head: No acute intracranial process. No intracranial hemorrhage, no evidence of infarct. No evidence of acute fracture. This was reviewed and interpreted by myself the emergency room physician. I also reviewed the radiology report. Lab Review: Laboratory results were reviewed and interpreted by myself the emergency room physician. No leukocytosis. No anemia. No renal failure. Assessment of risk: Level of risk: Low to moderate risk patient. Minimal comorbidities. Obesity. Hospitalization considerations: No reason for admission today. Reexamination: Patient remained stable. No increased work of breathing. No altered mental status. No focal motor deficits. Assessment and plan: Vertigo ?Meclizine in the emergency room - Discharged home - Discussed plan with patient. Answered any questions. - Evaluation and treatment of this problem were appropriate in the emergency setting. Lab Data 02/10/25 13:52 02/10/25 13:[address] 02/10/25 13:44 IMPRESSION: No acute intracranial abnormality. If symptoms persist, consider further evaluation with MRI, if there are no contraindications to obtaining a MRI scan. Laboratory Results WBC 7.29 10^3/uL (3.29-11.43) 02/10/25 13:52 RBC 5.63 10^6/uL (3.85-5.65) 02/10/25 13:52 Hgb 16.80 g/dL (11.27-16.99) 02/10/25 13:52 Hct 50.2 % (37-53) 02/10/25 13:52 MCV 89.2 fl (82-101) 02/10/25 13:52 MCH 29.8 pg (27-33) 02/10/25 13:52 MCHC 33.5 g/dL (30-55) 02/10/25 13:52 RDW 14.5 % (12.1-15.1) 02/10/25 13:52 Plt Count 217 10^3/cmm (157-399) 02/10/25 13:52 MPV 10.3 fL (7.4-10.4) 02/10/25 13:52 Neut % (Auto) 71.1 % 02/10/25 13:52 Lymph % (Auto) 20.9 % 02/10/25 13:52 Avery % (Auto) 6.4 % 02/10/25 13:52 Eos % (Auto) 0.8 % 02/10/25 13:52 Baso % (Auto) 0.7 % 02/10/25 13:52 Neut # (Auto) 5.18 10^3/uL (1.8-7.7) 02/10/25 13:52 Lymph # (Auto) 1.5 10^3/uL (0.8-4.8) 02/10/25 13:52 Avery # (Auto) 0.5 10^3/uL (0.2-0.9) 02/10/25 13:52 Eos # (Auto) 0.1 10^3/uL (0.0-0.8) 02/10/25 13:52 Baso # (Auto) 0.1 10^3/uL (0.0-0.1) 02/10/25 13:52 Nucleated RBC % (auto) 0 % 02/10/25 13:52 Nucleated RBCs # 0.0 /100WBC 02/10/25 13:52 Sodium 137 mmol/L (136-145) 02/10/25 13:52 Potassium 4.4 mmol/L (3.5-5.1) 02/10/25 13:52 Chloride 105 mmol/L (98-107) 02/10/25 13:52 Carbon Dioxide 22 mmol/L (22-29) 02/10/25 13:52 Anion Gap 14.4 (5-19) 02/10/25 13:52 BUN 18 mg/dL (8-23) 02/10/25 13:52 Creatinine 1.0 mg/dL (0.7-1.2) 02/10/25 13:52 Glucose 98 mg/dL (65-115) 02/10/25 13:52 Calculated Osmolality 286 mOsm/kg (285-295) 02/10/25 13:52 Calcium 9.1 mg/dL (8.5-10.5) 02/10/25 13:52 Total Bilirubin 0.6 mg/dL (0.15-1.2) 02/10/25 13:52 AST 16 U/L (0-40) 02/10/25 13:52 ALT 17 U/L (0-41) 02/10/25 13:52 Total Protein 7.5 g/dL (6.6-8.7) 02/10/25 13:52 Albumin 4.0 g/dL (3.5-5.2) 02/10/25 13:52 Globulin 3.5 g/dL (1.3-4.6) 02/10/25 13:52 All radiology interpretation(s) finalized by discharge Discharge Plan Discharge Patient Disposition: Home Clinical Impression: Vertigo, Headache Condition: Stable Prescriptions: New dexamethasone 6 mg tablet 6 mg PO DAILY 5 Days Qty: 5 0RF meclizine 25 mg tablet 25 mg PO QID PRN (Reason: dizziness) Qty: 20 0RF No Action tamsulosin [Flomax] 0.4 mg capsule 0.4 mg PO DAILY ibuprofen 800 mg tablet 800 mg PO Q8H PRN (Reason: Pain (Scale Score 1-3)) omeprazole 20 mg capsule,delayed release(DR/EC) 20 mg PO DAILY PRN (Reason: Indigestion) mirtazapine 30 mg Tablet 30 mg PO DAILY Discharge Orders: Discharge ED (Routine); Ordered 02/10/25 Ordered By: Mercedez Felder Referrals: Brionna Morelos FNP [Primary Care Provider, Nurse Practitioner] Discharge Diet: Usual diet Discharge Activity: Increase activity as tolerated Patient Instructions: Vertigo (ED), Opioid Safety, Pain Management, Patient Portal & Aleksey Instructions Activity Restrictions/Additional Instructions: Thank you for choosing [facility] for your healthcare needs today. You have been screened and evaluated and felt safe for discharge. Health conditions do change or evolve sometimes and as such it is important that you follow up with your Primary Doctor to be re checked, 3-5 days is a general good time frame for follow up. You are always welcome to return to the ED for re assessment if your symptoms are worsening or you have new concerns Print Language: British Coding Level of Care Code ED Aligning Checker for Jayna Terry
--- OUTSIDE RECORDS SUMMARY | 2025-02-10 13:57 | XMS_ITS | Patient Health Record ---
Author Organization [facility] Address [address] [place] [address] Care Team Providers Care Harness Puller Name Role Phone Brionna Estrada Primary Care Provid er Unavailable Liatselena Tresa Unavailable [phone] Allergies Allergen (clinical drug ingredient) Drug/Non Drug Allergy documented on EMR Reaction Allergy Type Onset Date Status morphine Morphine allergy Drug Allergy Active Reason For Referral No Information Medications Medication SIG (Take, Route, Frequency, Duration) Notes Start Date End Date Status Tamsulosin HCl 0.4 MG Capsule 1 capsule Orally Once a day; Duration: 90 days Active Meloxicam Not-Taking Ibuprofen 800 MG Tablet 1 tablet with fo od or milk as needed four times a day Active Social History Tobacco Use: Social History Observation Description Date Details (start date - stop date) Unknown Social History Drugs/Alcohol: Social Info Question Answer Notes Alcohol Screen (Audit-C) Did you have a drink containing alcohol in the past year? No Points 0 Interpretation Negative Drugs Have you used drugs other than those for medical reasons in the past 12 months? No Tobacco Use: Social Info Question Answer Notes xTobacco Use/Smoking Are you a Uses tobacco in othe r forms Additional Details Category Social Info Options Details Drugs/Alcohol: Do you smoke marijuana? De nies Do you drink alcohol? No Problems Problem Type SNOMED Code ICD Code Onset Dates Problem Status W/U Status Risk Notes Problem Hematuria (80552403) Hematuria (R31.9) Active confirmed Problem Benign prostatic hypertrophy with outflow obstruction (068192090) BPH loc w urin obs/LUTS (N40.1) Active confirmed Problem Kidney stone (58476150) Right nephrolithiasis (N20.0) Active confirmed Problem Bladder stone (30891469) Bladder stone (N21.0) Active confirmed Plan Of Treatment Pending Test Test Name Order Date UA Without Micro-Auto, Machine - 07207 0 10/09/2022 Basic Metabolic Panel (BMP) 70170 2022 CBC w\ Auto Diff [id number] 10/10/2022 Electrocardiogram 12 Lead Tracing-[id number] 10/10/2022 Insurance Providers Payer Name Payer Address Payer Phone Subscriber Number Group Number Insured Name Patient Relationship to Insured Coverage Start Date Coverage End Date [employer] [address] [place] [phone] [id number] Hasmukh Ladd Self - patient is the insured Medical (General) History Medical History History ICD Code hypertension kidney stones hematuria BPH with LUTS histoplasmosis obesity knee pain right Surgical History Surgery Date(Month/Year) kidney stone removal 2006 appendectomy 1973 Hospitalization History Reason Date(Month/Year) Histoplasmosis 1973
--- OUTSIDE RECORDS SUMMARY | 2025-02-10 13:57 | XMS_ITS | Patient Health Record ---
Author Organization [facility] Address [address] [place] [address] Care Team Providers Care Psychiatric Technician Assistant Name Role Phone Ford Morelos DO Primary Care Provider Unavaila ble Reason For Referral No Information Medications Medication SIG (Take, Route, Frequency, Duration) Notes Start Date End Date Status Medications Reconciled *please review for potential update for e-prescription and drug interaction check* Not-Taking Social History Social History Additional Details Category Social Info Options Details Migrated Social History Migrated Social History Alcohol Use, AttributeTitle: Non Drinker / No Alcohol Use, ProblemStatus: Active, , Tobacco Use, AttributeTitle: Uses chewing tobacco, ProblemStatus: Active Problems Problem Type SNOMED Code ICD Code Onset Dates Problem Status W/U Status Risk Notes Problem Otalgia (695284029) OTALGIA (H92.09) Inactive confirmed Problem Acute pharyngitis (010370026) ACUTE PHARYNGITIS, UNSPECIFIED PHARYNGITIS TYPE (462) Inactive confirmed Problem Colon cancer screening (768885045) COLON CANCER SCREENING (Z12.11) Inactive confirmed Problem Dysfunction of eustachian tube (43087686) DYSFUNCTION OF EUSTACHIAN TUBE (H69.80) Inactive confirmed Description:E USTACHIAN TUBE DYSFUNCTION Plan Of Treatment No Information Medical (General) History Surgical History Surgery Date(Month/Year) Appendectomy, ProblemStatus: Active,
--- OUTSIDE RECORDS SUMMARY | 2025-02-10 13:57 | XMS_ITS | Patient Health Record ---
Author Organization [facility] Address [address] [place] [address] Care Team Providers Care Specification Writer Name Role Phone Brionna Foote Primary Care Provider Belia DARIEN Randolph Unavailable [phone] Allergies Allergen (clinical drug ingredient) Drug/Non Drug Allergy documented on EMR Reaction Allergy Type Onset Date Status morphine Morphine allergy Drug Allergy Active Reason For Referral No Information Medications Medication SIG (Take, Route, Frequency, Duration) Notes Start Date End Date Status Ibuprofen 800 MG 1 tablet with food or milk as needed four times a day Active Meloxicam *Pick strength-form from Clerts! for eRX* Not-Taking Tamsulosin HCl 0.4 MG 1 capsule Orally Once a day; Duration: 90 days Active Problems Problem Type SNOMED Code ICD Code Onset Dates Problem Status W/U Status Risk Notes Problem Kidney stone (86680933) Right nephrolithiasis (N20.0) Active confirmed Problem Hematuria (54952325) Hematuria (R31.9) Active confirmed Problem Bladder stone (62833010) Bladder stone (N21.0) Active confirmed Problem Benign prostatic hypertrophy with outflow obstruction (514244426) BPH loc w urin obs/LUTS (N40.1) Active confirmed Plan Of Treatment Pending Test Test Name Order Date UA Without Micro-Auto 10064 10/09/2022 Basic Metabolic Panel 30334 10/10/2022 CBC w\ Auto Diff 60918 10/10/2022 Electrocardiogram 12 Lead Tracing-[id number] 10/10/2022 Insurance Providers Payer Name Payer Address Payer Phone Subscriber Number Group Number Insured Name Patient Relationship to Insured Coverage Start Date Coverage End Date [employer] [address] [place], [place] [id number] Hasmukh Ladd Self - patient is the insured Medical (General) History Medical History History ICD Code hypertension kidney stones hematuria BPH with LUTS histoplasmosis obesity knee pain right Surgical History Surgery Date(Month/Year) kidney stone removal 2007 appendectomy 1973 Hospitalization History Reason Date(Month/Year) Histoplasmosis 1973
[2025-02-10 13:58] LABS: Hematocrit 50.2 % (37-53); Hemoglobin 16.80 g/dL (11.27-16.99); Mean Corpuscular HGB Conc 33.5 g/dL (30-55); Mean Corpuscular Hemoglobin 29.8 pg (27-33); Mean Corpuscular Volume 89.2 fl (82-101); Nucleated Red Blood Cells % 0 %; Platelet Count 217 10^3/cmm (157-399); Red Blood Count 5.63 10^6/uL (3.85-5.65); White Blood Count 7.29 10^3/uL (3.29-11.43)
[2025-02-10 14:22] LABS: Alanine Aminotransferase 17 U/L (0-41); Albumin Level 4.0 g/dL (3.5-5.2); Alkaline Phosphatase 174 U/L (40-130); Anion Gap 14.4 (5-19); Aspartate Amino Transferase 16 U/L (0-40); Blood Urea Nitrogen 18 mg/dL (8-23); Calcium 9.1 mg/dL (8.5-10.5); Carbon Dioxide 22 mmol/L (22-29); Chloride 105 mmol/L (98-107); Globulin 3.5 g/dL (1.3-4.6); Glucose 98 mg/dL (65-115); Osmolality Calculated 286 mOsm/kg (285-295); Potassium 4.4 mmol/L (3.5-5.1); Sodium 137 mmol/L (136-145); Total Protein 7.5 g/dL (6.6-8.7)
[2025-02-10 14:45] VITALS: BP 135/82; PULSE 73; O2SAT 95
== END 2025-02-10 14:46 | disposition home or self-care (01) ==
PROVIDERS: Emergency Medicine; Emergency Provider Emergency Medicine; PCP Nurse Practitioner
DX: R42 Dizziness and giddiness (principal); R51.9 Headache, unspecified
CPT/HCPCS: 36415; 70450; 80053; 85025; 99284; J8597